=== PATIENT | female | born 1995 ===

== ENCOUNTER 2016-11-07 08:45 | Outpatient (RCR) | payer OTHER | END 2016-12-19 16:03 | LOC: WSPT 08:45 | DX: M25.551 Pain in right hip (principal) | CPT/HCPCS: G0283-GP; G8978-GP; G8979-GP ==

== ENCOUNTER 2017-02-17 07:08 | Emergency (ER) | payer OTHER ==
[~2017-02-17] VITALS: Ht 149.9 cm; Wt 53.2 kg
[2017-02-17 07:12] VITALS: BP 127/83; PULSE 70; TEMP 98.4
[2017-02-17] MEDS ORDERED: ATARAX 25MG25 MG/TAB PO (07:40)
[2017-02-17] MEDS ORDERED: PROBIOTIC FORMU1 CAP PO (07:50)
== END 2017-02-17 07:54 | disposition home or self-care (01) ==
LOC: COL.ER 07:08
DX: R21 Rash and other nonspecific skin eruption (principal)

== ENCOUNTER 2017-02-22 17:29 | Emergency (ER) | payer OTHER ==
[~2017-02-22] VITALS: Ht 149.9 cm; Wt 52.3 kg
[~2017-02-22 17:29] MED LIST: ATARAX 25MG25 MG/TAB PO; PROBIOTIC FORMU1 CAP PO
[2017-02-22 17:34] VITALS: BP 112/65; PULSE 68; TEMP 99
[2017-02-22] MEDS ORDERED: LAMISIL250 M1 PO (18:29)
== END 2017-02-22 18:51 | disposition home or self-care (01) ==
LOC: COL.ER 17:29
DX: B35.0 Tinea barbae and tinea capitis (principal)